=== PATIENT | female | born 1995 | race Two or more races ===

== ENCOUNTER 2024-04-16 23:23 | Emergency (ER) | payer OTHER ==
[~2024-04-16] VITALS: Ht 165.1 cm; Wt 61.2 kg
[2024-04-17] MEDS ORDERED: IBUP-1957 PO (00:04)
[2024-04-17] MEDS ORDERED: CYCL15CA23 PO (00:04)
[2024-04-17] MEDS ORDERED: IBUPROFEN 400 MG TABLET ONE (00:07)
[2024-04-17] MEDS ORDERED: CYCLOBENZAPRINE 10 MG TABLET ONE (00:07)
[2024-04-17] MEDS: IBUPROFEN 400 MG TABLET PO ONE (00:20)
[2024-04-17] MEDS: CYCLOBENZAPRINE 10 MG TABLET PO ONE (00:20)
[2024-04-17] MEDS: CYCLOBENZAPRINE 10 MG TABLET ONE (00:21)
[2024-04-17 00:23] VITALS: BP 129/81; TEMP 98.5
[2024-04-17 00:25] VITALS: O2SAT 100
== END 2024-04-17 00:26 | disposition home or self-care (01) ==
LOC: ER 23:29
DX: M54.12 Radiculopathy, cervical region (principal); M62.838 Other muscle spasm; M79.602 Pain in left arm; R07.9 Chest pain, unspecified; F12.10 Cannabis abuse, uncomplicated; Z60.2 Problems related to living alone